=== PATIENT | female | born 1960 | race Caucasian/White ===

== ENCOUNTER 2023-08-01 10:17 | Day surgery (SDC) | payer BC ==
[2023-08-01] MEDS ORDERED: Sodium Chloride 0.9% 10 ML Syringe FLUSH PRN (10:30)
[2023-08-01] MEDS ORDERED: Lactated Ringers 1,000 ML IV SCH (10:30)
[2023-08-01] MEDS ORDERED: Propofol 200 MG/20 ML SDV ONE (10:58)
[2023-08-01] MEDS ORDERED: Midazolam 1 MG/ML 2 ML SDV ONE (10:58)
== END 2023-08-01 13:26 | disposition home or self-care (01) ==
LOC: KA.SDS 10:17
PROVIDERS: ATTEND Surgery
DX: D12.3 Benign neoplasm of transverse colon (principal); D12.5 Benign neoplasm of sigmoid colon; K64.9 Unspecified hemorrhoids; K62.1 Rectal polyp; E78.5 Hyperlipidemia, unspecified; E03.9 Hypothyroidism, unspecified; Z90.89 Acquired absence of other organs; Z98.51 Tubal ligation status; Z79.899 Other long term (current) drug therapy; Z79.890 Hormone replacement therapy
CPT/HCPCS: 00811; J2250; J2704; J7120